=== PATIENT | female | born 1945 | race Caucasian/White ===

== ENCOUNTER 2019-03-13 01:41 | Emergency (ER) | payer MEDICARE ==
[2019-03-13] MEDS ORDERED: ACETAMINOPHEN ELIXIR 650 MG/20.3 ML UDCUP ONE (02:15)
[2019-03-13] MEDS ORDERED: SODIUM CHLORIDE 0.9% 1000ML 1,000 ML IV ONE (02:16)
[2019-03-13 02:40] LABS: BASOPHILS % (AUTO) 0.8 % (0.0-5.0); EOSINOPHILS % (AUTO) 2.2 % (0.0-8.0); HEMATOCRIT 39.1 % (36-48); LYMPHOCYTES % (AUTO) 9.5 % (21.0-51.0); MEAN CORPUSCULAR HEMOGLOBIN 34.8 pg (27.0-33.0); MEAN CORPUSCULAR HGB CONC 34.2 g/dL (32.0-36.0); MEAN CORPUSCULAR VOLUME 101.8 fL (79-99); MONOCYTES % (AUTO) 7.7 % (3.0-13.0); NEUTROPHILS % (AUTO) 79.8 % (40.0-77.0); PLATELET COUNT (AUTO) 162 K/uL (130-400); RED BLOOD CELL COUNT(AUTO) 3.84 MIL/uL (4.00-5.50); RED CELL DISTRIBUTION WIDTH 14.2 % (11.0-15.5); WHITE BLOOD COUNT (AUTO) 10.2 K/uL (4.8-10.8)
[2019-03-13 02:41] LABS: APPEARANCE,URINE Turbid (CLEAR); BILIRUBIN,URINE Negative (NEGATIVE); COLOR,URINE Yellow (YELLOW); GLUCOSE, URINE (UA) Negative (NEGATIVE); KETONES,URINE Negative (NEGATIVE); LEUKOCYTE ESTERASE ,URINE Large (NEGATIVE); NITRATE,URINE Positive (NEGATIVE); OCCULT BLOOD,URINE Large (NEGATIVE); PROTEIN,URINE 300 mg/dL (NEGATIVE)
[2019-03-13 02:48] LABS: AMPHET/METH SCREEN,URINE NEGATIVE (NEGATIVE); BARBITURATE SCREEN, URINE POSITIVE (NEGATIVE); BENZODIAZEPINES SCREEN,URINE NEGATIVE (NEGATIVE); CANNABINOID SCREEN,URINE NEGATIVE (NEGATIVE); COCAINE SCREEN,URINE NEGATIVE (NEGATIVE); OPIATE SCREEN,URINE NEGATIVE (NEGATIVE); PHENCYCLIDINE SCREEN,URINE NEGATIVE (NEGATIVE)
[2019-03-13 02:50] LABS: CREATININE 0.9 mg/dL (0.5-1.5)
[2019-03-13 02:52] LABS: INR 0.96 (0.85-1.15); PARTIAL THROMBOPLASTIN TIME 26.4 SEC (26.3-35.5); PROTHROMBIN TIME 10.1 SEC (9.6-11.6)
[2019-03-13 02:55] LABS: BILIRUBIN,TOTAL 0.8 mg/dL (0.2-1.0); TOTAL PROTEIN, SERUM 8.1 g/dL (6.0-8.3)
[2019-03-13 02:56] LABS: BACTERIA,URINE Few /HPF (None Seen); WBC,URINE 51-100 /HPF (0-1)
[2019-03-13 02:57] LABS: SQUAMOUS EPITHELIAL CELL,UR Rare /HPF (0-2)
== END 2019-03-13 05:15 | disposition home or self-care (01) ==
LOC: EDH 01:41
DX: N39.0 Urinary tract infection, site not specified (principal); I10 Essential (primary) hypertension; E78.00 Pure hypercholesterolemia, unspecified; Z90.49 Acquired absence of other specified parts of digestive tract; Z88.0 Allergy status to penicillin; Z88.1 Allergy status to other antibiotic agents; Z88.8 Allergy status to other drugs, medicaments and biological substances
CPT/HCPCS: 36415; 74176; 80053; 80305; 81001; 83690; 85025; 85610; 85730; 87040 ×2; 93005; 96365; 99285; J7030

== ENCOUNTER 2019-05-06 07:18 | Emergency (ER) | payer MEDICARE, OTHER ==
[2019-05-06] MEDS ORDERED: IPRATROPIUM/ALBUTEROL SULFATE 3 ML SOLUTION IH ONE (07:57)
[2019-05-06] MEDS ORDERED: ACETAMINOPHEN 325 MG TAB ONE (08:02)
[2019-05-06 08:26] LABS: RAPID GROUP A STREP NEGATIVE (NEGATIVE)
== END 2019-05-06 09:41 | disposition home or self-care (01) ==
LOC: EDH 07:18
DX: J20.9 Acute bronchitis, unspecified (principal); J11.1 Influenza due to unidentified influenza virus with other respiratory manifestations; I10 Essential (primary) hypertension; E78.00 Pure hypercholesterolemia, unspecified; Z88.8 Allergy status to other drugs, medicaments and biological substances; Z90.49 Acquired absence of other specified parts of digestive tract; Z87.891 Personal history of nicotine dependence
CPT/HCPCS: 71046; 87804; 87880; 94640

== ENCOUNTER 2019-06-01 04:18 | Emergency (ER) | payer MEDICARE ==
[2019-06-01] MEDS ORDERED: IPRATROPIUM/ALBUTEROL SULFATE 3 ML SOLUTION IH ONE (05:06)
[2019-06-01] MEDS ORDERED: BENZONATATE 100 MG CAPSULE PO ONE (05:09)
[2019-06-01] MEDS ORDERED: METHYLPREDNISOLONE SOD SUCC 125MG/2ML VIAL ONE (05:10)
[2019-06-01 05:23] LABS: BASOPHILS % (AUTO) 1.3 % (0.0-5.0); EOSINOPHILS % (AUTO) 5.4 % (0.0-8.0); HEMATOCRIT 36.4 % (36-48); LYMPHOCYTES % (AUTO) 17.4 % (21.0-51.0); MEAN CORPUSCULAR HEMOGLOBIN 34.1 pg (27.0-33.0); MEAN CORPUSCULAR VOLUME 97.4 fL (79-99); MONOCYTES % (AUTO) 10.3 % (3.0-13.0); NEUTROPHILS % (AUTO) 65.6 % (40.0-77.0); PLATELET COUNT (AUTO) 328 K/uL (130-400); RED BLOOD CELL COUNT(AUTO) 3.73 MIL/uL (4.00-5.50); RED CELL DISTRIBUTION WIDTH 13.5 % (11.0-15.5); WHITE BLOOD COUNT (AUTO) 7.2 K/uL (4.8-10.8)
[2019-06-01 05:24] LABS: CREATININE 0.7 mg/dL (0.5-1.5); POTASSIUM 3.2 mmol/L (3.5-5.1)
[2019-06-01 05:29] LABS: ALBUMIN 3.2 g/dL (3.5-5.0); BILIRUBIN,TOTAL 0.3 mg/dL (0.2-1.0); TOTAL PROTEIN, SERUM 7.7 g/dL (6.0-8.3)
[2019-06-01] MEDS ORDERED: POTASSIUM BICARB/CIT AC 25 MEQ TABLET.EFF ONE (06:37)
== END 2019-06-01 07:27 | disposition home or self-care (01) ==
LOC: EDH 04:18
DX: J42 Unspecified chronic bronchitis (principal); I10 Essential (primary) hypertension; E78.00 Pure hypercholesterolemia, unspecified; Z88.0 Allergy status to penicillin; Z88.8 Allergy status to other drugs, medicaments and biological substances; Z90.49 Acquired absence of other specified parts of digestive tract
CPT/HCPCS: 36415; 71046; 80053; 85025; 94640; 96374; 99285; J2930

== ENCOUNTER 2020-07-21 13:03 | Emergency (ER) | payer MEDICARE ==
[2020-07-21] MEDS ORDERED: KETOROLAC 30MG VIAL (30MG/ML) ONE (16:06)
[2020-07-21] MEDS ORDERED: OXYCODONE/ACETAMIN 5/325MG TAB ONE (16:06)
[2020-07-21] MEDS ORDERED: DEXAMETHASONE 4 MG TAB ONE (16:54)
== END 2020-07-21 17:19 | disposition home or self-care (01) ==
LOC: EDH 13:03
DX: M17.12 Unilateral primary osteoarthritis, left knee (principal); M19.90 Unspecified osteoarthritis, unspecified site; M06.9 Rheumatoid arthritis, unspecified; E78.00 Pure hypercholesterolemia, unspecified; I10 Essential (primary) hypertension; Z90.49 Acquired absence of other specified parts of digestive tract; Z88.0 Allergy status to penicillin; Z88.2 Allergy status to sulfonamides; Z88.1 Allergy status to other antibiotic agents; Z88.8 Allergy status to other drugs, medicaments and biological substances
CPT/HCPCS: 72100; 73502; 73562; 96372; 99284; J1885; J8540

== ENCOUNTER 2020-08-21 22:21 | Inpatient (IN) | payer MEDICARE, OTHER ==
[~2020-08-21] VITALS: Ht 162.6 cm; Wt 81.3 kg
[2020-08-21] MEDS ORDERED: MORPHINE 2 MG SYG ONE (22:25)
[2020-08-21] MEDS ORDERED: ONDANSETRON 4MG INJ ONE (22:25)
[2020-08-21 22:41] LABS: BASOPHILS % (AUTO) 1.8 % (0.0-5.0); EOSINOPHILS % (AUTO) 9.6 % (0.0-8.0); HEMATOCRIT 35.4 % (36-48); LYMPHOCYTES % (AUTO) 32.3 % (21.0-51.0); MEAN CORPUSCULAR HEMOGLOBIN 32.2 pg (27.0-33.0); MEAN CORPUSCULAR HGB CONC 35.9 g/dL (32.0-36.0); MEAN CORPUSCULAR VOLUME 89.6 fL (79-99); MONOCYTES % (AUTO) 14.4 % (3.0-13.0); NEUTROPHILS % (AUTO) 41.8 % (40.0-77.0); PLATELET COUNT (AUTO) 258 K/uL (130-400); RED BLOOD CELL COUNT(AUTO) 3.95 MIL/uL (4.00-5.50); RED CELL DISTRIBUTION WIDTH 12.1 % (11.0-15.5); WHITE BLOOD COUNT (AUTO) 7.1 K/uL (4.8-10.8)
[2020-08-21 22:49] LABS: APPEARANCE,URINE Clear (CLEAR); BILIRUBIN,URINE Negative (NEGATIVE); COLOR,URINE Yellow (YELLOW); GLUCOSE, URINE (UA) Negative (NEGATIVE); KETONES,URINE Negative (NEGATIVE); LEUKOCYTE ESTERASE ,URINE Negative (NEGATIVE); NITRATE,URINE Negative (NEGATIVE); OCCULT BLOOD,URINE Negative (NEGATIVE); PROTEIN,URINE Trace mg/dL (NEGATIVE); UROBILINOGEN,URINE 0.2 mg/dL (0.2-1.0)
[2020-08-21 22:49] LABS: CREATININE 0.8 mg/dL (0.5-1.5); POTASSIUM 3.3 mmol/L (3.5-5.1)
[2020-08-21 22:54] LABS: ALBUMIN 3.8 g/dL (3.5-5.0); BILIRUBIN,TOTAL 0.3 mg/dL (0.2-1.0); TOTAL PROTEIN, SERUM 8.1 g/dL (6.0-8.3)
[2020-08-21 23:00] LABS: INR 1.07 (0.85-1.15); PROTHROMBIN TIME 11.4 SEC (9.6-11.6)
[2020-08-21 23:01] LABS: PARTIAL THROMBOPLASTIN TIME 25.9 SEC (26.3-35.5)
[2020-08-21] MEDS ORDERED: POTASSIUM BICARB/CIT AC 25 MEQ TABLET.EFF ONE (23:15)
[2020-08-21] MEDS ORDERED: MORPHINE 4 MG SYG ONE (23:29)
[2020-08-22] VITALS (21 sets, daily range): BP systolic 106–146; BP diastolic 54–92
[2020-08-22] MEDS ORDERED: DiphenhydrAMINE HCL 50 MG/ML VIAL IV PRN
[2020-08-22] MEDS ORDERED: KCL 20 MEQ ERTAB PO PRN
[2020-08-22] MEDS ORDERED: DIPHENHYDRAMINE HCL 25 MG CAPSULE PO PRN
[2020-08-22] MEDS ORDERED: MORPHINE 4 MG SYG IV PRN
[2020-08-22] MEDS ORDERED: POTASSIUM CHLORIDE 20MEQ/100ML 100 ML IV PRN ×2
[2020-08-22] MEDS ORDERED: MORPHINE 2 MG SYG IV PRN
[2020-08-22] MEDS ORDERED: ONDANSETRON 4MG INJ IV PRN
[2020-08-22] MEDS ORDERED: GUAIFENESIN-DM 200/20 MG 10 ML PO PRN
[2020-08-22] MEDS ORDERED: LACTULOSE 20 GM/30 ML UDCUP PO PRN
[2020-08-22] MEDS ORDERED: ACETAMINOPHEN WITH CODEINE 1 TAB TAB PO PRN
[2020-08-22] MEDS ORDERED: ACETAMINOPHEN 325 MG TAB PO PRN ×2
[2020-08-22] MEDS ORDERED: NITROGLYCERIN 0.4 MG SL TAB SL PRN
[2020-08-22] MEDS ORDERED: MAG/ALUM/SIMETH 30 ML UDCUP PO PRN
[2020-08-22 05:32] LABS: EOSINOPHILS % (AUTO) 1.4 % (0.0-8.0); HEMATOCRIT 35.2 % (36-48); LYMPHOCYTES % (AUTO) 9.9 % (21.0-51.0); MEAN CORPUSCULAR HEMOGLOBIN 31.4 pg (27.0-33.0); MEAN CORPUSCULAR HGB CONC 34.4 g/dL (32.0-36.0); MEAN CORPUSCULAR VOLUME 91.4 fL (79-99); MONOCYTES % (AUTO) 8.2 % (3.0-13.0); NEUTROPHILS % (AUTO) 79.2 % (40.0-77.0); PLATELET COUNT (AUTO) 278 K/uL (130-400); RED BLOOD CELL COUNT(AUTO) 3.85 MIL/uL (4.00-5.50); WHITE BLOOD COUNT (AUTO) 9.8 K/uL (4.8-10.8)
[2020-08-22 05:40] LABS: HEMOGLOBIN A1C 5.3 % (4.0-6.0)
[2020-08-22 05:58] LABS: INR 1.04 (0.85-1.15); PROTHROMBIN TIME 11.1 SEC (9.6-11.6)
[2020-08-22 06:16] LABS: ALBUMIN 3.3 g/dL (3.5-5.0); BILIRUBIN,TOTAL 0.6 mg/dL (0.2-1.0); POTASSIUM 4.4 mmol/L (3.5-5.1); TOTAL PROTEIN, SERUM 7.4 g/dL (6.0-8.3)
[2020-08-22 06:51] LABS: CREATININE 0.8 mg/dL (0.5-1.5); THYROID STIMULATING HORMONE 1.97 uIU/mL (0.36-3.74)
[2020-08-22] MEDS: HEPARIN 5,000 UNIT VIAL SQ SCH ×2 (09:00→22:15)
[2020-08-22] MEDS: FAMOTIDINE 20MG VIAL IV SCH ×2 (11:21→22:08)
[2020-08-22] MEDS ORDERED: CLINDAMYCIN IVPB 900MG/50ML 50 ML IV ONE (12:44)
[2020-08-22] MEDS ORDERED: MIDAZOLAM HCL 1 MG/ML 2ML VIAL ONE (12:49)
[2020-08-22] MEDS ORDERED: SUCCINYLCHOLINE CHLORIDE 20 MG/ML 10 ML VIAL ONE (12:53)
[2020-08-22] MEDS ORDERED: LIDOCAINE HCL-MPF 1% 5ML AMP IJ ONE (12:53)
[2020-08-22] MEDS ORDERED: DEXAMETHASONE SOD PHOSPHATE 10MG/ML 1ML VIAL ONE (12:54)
[2020-08-22] MEDS ORDERED: PROPOFOL 10 MG/ML 20ML VIAL IV ONE (12:54)
[2020-08-22] MEDS ORDERED: ROCURONIUM 10MG/1ML SYR 10 MG/ML ML ONE (12:54)
[2020-08-22] MEDS ORDERED: FENTANYL CITRATE PF 50 MCG/1 ML 2ML VIAL ONE (12:54)
[2020-08-22] MEDS ORDERED: ONDANSETRON 4MG INJ ONE (12:54)
[2020-08-22] MEDS ORDERED: ROPIVACAINE 0.5% 5MG/ML 30ML IJ ONE (12:57)
[2020-08-22] MEDS ORDERED: EPHEDRINE SULFATE 50 MG/ML AMPULE ONE (13:18)
[2020-08-22] MEDS ORDERED: GLYCOPYRROLATE 1 MG/5 ML SYRINGE ONE (14:08)
[2020-08-22] MEDS ORDERED: NEOSTIGMINE 5MG/5ML SYR IV ONE (14:08)
[2020-08-22] MEDS ORDERED: PHENYLEPHRINE HCL 10 MG/ML 1ML VIAL IV ONE (14:16)
[2020-08-22] MEDS ORDERED: BRIM10DR16 OP (20:11)
[2020-08-22] MEDS ORDERED: CYCL5TAB PO (20:11)
[2020-08-22] MEDS ORDERED: CYCL30DR OP (20:11)
[2020-08-22] MEDS ORDERED: SPIR25TA6 PO (20:11)
[2020-08-22] MEDS ORDERED: AMLO2.5T4 PO (20:11)
[2020-08-22] MEDS ORDERED: BISO10TA16 PO (20:11)
[2020-08-22] MEDS ORDERED: ROSU40TA21 PO (20:11)
[2020-08-22] MEDS ORDERED: ASPI-1197 PO (20:11)
[2020-08-22] MEDS ORDERED: LEFL10TA19 PO (20:11)
[2020-08-22] MEDS ORDERED: HYDR200T4 PO (20:11)
[2020-08-22] MEDS ORDERED: LATA7.5D OP (20:11)
[2020-08-22] MEDS ORDERED: PHEN100C9 PO (20:11)
[2020-08-22] MEDS ORDERED: EZET10TA48 PO (20:11)
[2020-08-22] MEDS ORDERED: FURO20TA4 PO (20:11)
[2020-08-22] MEDS ORDERED: MELO-106 PO (20:11)
[2020-08-22] MEDS ORDERED: LEVO75CA5 PO (20:11)
[2020-08-22] MEDS ORDERED: PHEN97.29 PO (20:11)
[2020-08-23 03:38] VITALS: BP 123/59
[2020-08-23 06:19] LABS: BASOPHILS % (AUTO) 1.1 % (0.0-5.0); EOSINOPHILS % (AUTO) 3.6 % (0.0-8.0); HEMATOCRIT 30.2 % (36-48); LYMPHOCYTES % (AUTO) 16.5 % (21.0-51.0); MEAN CORPUSCULAR HEMOGLOBIN 31.7 pg (27.0-33.0); MEAN CORPUSCULAR HGB CONC 34.8 g/dL (32.0-36.0); MEAN CORPUSCULAR VOLUME 91.2 fL (79-99); MONOCYTES % (AUTO) 15.7 % (3.0-13.0); NEUTROPHILS % (AUTO) 62.8 % (40.0-77.0); PLATELET COUNT (AUTO) 238 K/uL (130-400); RED BLOOD CELL COUNT(AUTO) 3.31 MIL/uL (4.00-5.50); RED CELL DISTRIBUTION WIDTH 11.9 % (11.0-15.5); WHITE BLOOD COUNT (AUTO) 7.2 K/uL (4.8-10.8)
[2020-08-23 06:48] LABS: ALBUMIN 2.9 g/dL (3.5-5.0); BILIRUBIN,TOTAL 0.4 mg/dL (0.2-1.0); CREATININE 0.7 mg/dL (0.5-1.5); POTASSIUM 4.9 mmol/L (3.5-5.1); TOTAL PROTEIN, SERUM 6.6 g/dL (6.0-8.3)
[2020-08-23 07:19] VITALS: BP 142/69
[2020-08-23] MEDS: LEVOTHYROXINE 75 MCG TABLET PO SCH (07:22)
[2020-08-23] MEDS: HEPARIN 5,000 UNIT VIAL SQ SCH ×2 (08:34→20:14)
[2020-08-23] MEDS: CYCLOBENZAPRINE HCL 10 MG TABLET PO SCH (08:40)
[2020-08-23] MEDS: AMLODIPINE 2.5 MG TAB PO SCH (08:41)
[2020-08-23] MEDS: ASPIRIN 81MG CHEW TAB PO SCH (08:41)
[2020-08-23] MEDS: FUROSEMIDE 40 MG TABLET PO SCH (08:41)
[2020-08-23] MEDS: PHENYTOIN SODIUM 100 MG ERCAP PO SCH ×3 (08:41→20:09)
[2020-08-23] MEDS: EZETIMIBE 10 MG TAB PO SCH (08:41)
[2020-08-23] MEDS: HYDROXYCHLOROQUINE SULFATE 200 MG TAB PO SCH (08:41)
[2020-08-23] MEDS: SPIRONOLACTONE 25 MG TAB PO SCH (08:43)
[2020-08-23] MEDS: BRIMONIDINE OP SCH ×2 (09:00→20:08)
[2020-08-23] MEDS: **HM**(Leflunomide 10 MG PO SCH (09:00)
[2020-08-23] MEDS: BISOPROLOL FUMARATE 10 MG PO SCH (09:00)
[2020-08-23] MEDS: LATANOPROST 2.5 ML DROPS OP SCH (09:00)
[2020-08-23] MEDS: DORZOLAMIDE OP SCH ×2 (09:00→20:08)
[2020-08-23] MEDS: **HM**(Cyclosporine (Restasis) 1 EACH OP SCH ×2 (09:00→20:08)
[2020-08-23 10:51] VITALS: BP 132/57
[2020-08-23] MEDS: ACETAMINOPHEN WITH CODEINE 1 TAB TAB PO PRN ×2 (12:00→19:55)
[2020-08-23] MEDS: FAMOTIDINE 20MG TAB PO SCH ×2 (12:01→20:08)
[2020-08-23 15:38] VITALS: BP 122/60
[2020-08-23] MEDS: PHENOBARBITAL 1/4 GR TABLET PO SCH (16:02)
[2020-08-23 19:39] VITALS: BP 145/60
[2020-08-23] MEDS: ATORVASTATIN 40 MG TABLET PO SCH (20:08)
[2020-08-23 23:55] VITALS: BP 122/56
[2020-08-24] MEDS: FUROSEMIDE 40 MG TABLET PO SCH ×3 (02:23→21:06)
[2020-08-24 04:53] VITALS: BP 148/63
[2020-08-24 06:09] LABS: BASOPHILS % (AUTO) 1.2 % (0.0-5.0); HEMATOCRIT 31.3 % (36-48); LYMPHOCYTES % (AUTO) 12.9 % (21.0-51.0); MEAN CORPUSCULAR HEMOGLOBIN 31.5 pg (27.0-33.0); MEAN CORPUSCULAR HGB CONC 35.1 g/dL (32.0-36.0); MEAN CORPUSCULAR VOLUME 89.7 fL (79-99); MONOCYTES % (AUTO) 16.1 % (3.0-13.0); NEUTROPHILS % (AUTO) 67.6 % (40.0-77.0); PLATELET COUNT (AUTO) 226 K/uL (130-400); RED BLOOD CELL COUNT(AUTO) 3.49 MIL/uL (4.00-5.50); WHITE BLOOD COUNT (AUTO) 8.1 K/uL (4.8-10.8)
[2020-08-24] MEDS: LEVOTHYROXINE 75 MCG TABLET PO SCH (06:41)
[2020-08-24 06:56] LABS: ALBUMIN 2.9 g/dL (3.5-5.0); BILIRUBIN,TOTAL 0.6 mg/dL (0.2-1.0); CREATININE 0.8 mg/dL (0.5-1.5); POTASSIUM 3.4 mmol/L (3.5-5.1)
[2020-08-24 07:11] VITALS: BP 140/70
[2020-08-24] MEDS: **HM**(Cyclosporine (Restasis) 1 EACH OP SCH ×2 (09:00→21:00)
[2020-08-24] MEDS: BRIMONIDINE OP SCH ×2 (09:00→21:00)
[2020-08-24] MEDS: LATANOPROST 2.5 ML DROPS OP SCH (09:00)
[2020-08-24] MEDS: BISOPROLOL FUMARATE 10 MG PO SCH (09:00)
[2020-08-24] MEDS: **HM**(Leflunomide 10 MG PO SCH (09:00)
[2020-08-24] MEDS: DORZOLAMIDE OP SCH ×2 (09:00→21:00)
[2020-08-24] MEDS: HEPARIN 5,000 UNIT VIAL SQ SCH ×2 (09:52→21:06)
[2020-08-24] MEDS: CYCLOBENZAPRINE HCL 10 MG TABLET PO SCH (10:06)
[2020-08-24] MEDS: AMLODIPINE 2.5 MG TAB PO SCH (10:08)
[2020-08-24] MEDS: SPIRONOLACTONE 25 MG TAB PO SCH (10:08)
[2020-08-24] MEDS: EZETIMIBE 10 MG TAB PO SCH (10:09)
[2020-08-24] MEDS: HYDROXYCHLOROQUINE SULFATE 200 MG TAB PO SCH (10:09)
[2020-08-24] MEDS: FAMOTIDINE 20MG TAB PO SCH ×2 (10:09→21:06)
[2020-08-24] MEDS: PHENOBARBITAL 1/4 GR TABLET PO SCH (10:10)
[2020-08-24] MEDS: ASPIRIN 81MG CHEW TAB PO SCH (10:10)
[2020-08-24] MEDS: PHENYTOIN SODIUM 100 MG ERCAP PO SCH ×3 (10:10→21:05)
[2020-08-24] MEDS: POTASSIUM CHLORIDE 10% ELIXIR 20 MEQ/15 ML UDCUP PO PRN ×2 (11:21→17:03)
[2020-08-24 11:45] VITALS: BP 119/64
[2020-08-24 15:34] VITALS: BP 147/99
[2020-08-24 20:49] VITALS: BP 108/52
[2020-08-24] MEDS: ATORVASTATIN 40 MG TABLET PO SCH (21:05)
[2020-08-24 23:29] VITALS: BP 126/60
[2020-08-25 03:26] VITALS: BP 113/59
[2020-08-25] MEDS: LEVOTHYROXINE 75 MCG TABLET PO SCH (05:23)
[2020-08-25 07:56] VITALS: BP 137/52
[2020-08-25] MEDS: HYDROXYCHLOROQUINE SULFATE 200 MG TAB PO SCH (09:00)
[2020-08-25] MEDS: EZETIMIBE 10 MG TAB PO SCH (09:00)
[2020-08-25] MEDS: LATANOPROST 2.5 ML DROPS OP SCH (09:00)
[2020-08-25] MEDS: HEPARIN 5,000 UNIT VIAL SQ SCH (09:00)
[2020-08-25] MEDS: AMLODIPINE 2.5 MG TAB PO SCH (09:00)
[2020-08-25] MEDS: BRIMONIDINE OP SCH (09:00)
[2020-08-25] MEDS: FAMOTIDINE 20MG TAB PO SCH (09:00)
[2020-08-25] MEDS: **HM**(Leflunomide 10 MG PO SCH (09:00)
[2020-08-25] MEDS: DORZOLAMIDE OP SCH (09:00)
[2020-08-25] MEDS: **HM**(Cyclosporine (Restasis) 1 EACH OP SCH (09:00)
[2020-08-25] MEDS: ASPIRIN 81MG CHEW TAB PO SCH (09:00)
[2020-08-25] MEDS: BISOPROLOL FUMARATE 10 MG PO SCH (09:00)
[2020-08-25] MEDS: SPIRONOLACTONE 25 MG TAB PO SCH (09:00)
[2020-08-25] MEDS: FUROSEMIDE 40 MG TABLET PO SCH (09:00)
[2020-08-25] MEDS: PHENYTOIN SODIUM 100 MG ERCAP PO SCH (09:00)
[2020-08-25] MEDS: CYCLOBENZAPRINE HCL 10 MG TABLET PO SCH (09:00)
[2020-08-25 11:36] VITALS: BP 145/74
[2020-08-25 16:17] VITALS: BP 109/52
== END 2020-08-25 18:47 | DRG 482 ==
LOC: EDH 22:21 → EDHIP 23:54 → 3BH 08-22 02:24
PROVIDERS: ADMIT Family Medicine; ATTEND Family Medicine
PROC: 0QS906Z Reposition Left Femoral Shaft with Intramedullary Internal Fixation Device, Open Approach (ICD-10-PCS; principal; 2020-08-22 13:35)
DX: S72.332A Displaced oblique fracture of shaft of left femur, initial encounter for closed fracture (principal); Z68.30 Body mass index [BMI] 30.0-30.9, adult; I10 Essential (primary) hypertension; E78.5 Hyperlipidemia, unspecified; W18.39XA Other fall on same level, initial encounter; Y93.89 Activity, other specified; Y99.8 Other external cause status; Y92.009 Unspecified place in unspecified non-institutional (private) residence as the place of occurrence of the external cause; Z90.49 Acquired absence of other specified parts of digestive tract; E66.9 Obesity, unspecified; Z88.8 Allergy status to other drugs, medicaments and biological substances; Z88.0 Allergy status to penicillin; Z88.1 Allergy status to other antibiotic agents
CPT/HCPCS: 36415; 71045; 72192; 73502; 73552; 73700; 80053; 81003; 82550; 84484; 85025; 85610; 85730; 86900; 86901; 93005; 97039; 99291; G0378; J0330; J1100; J1644; J2250; J2270; J2370; J2405; J2704; J2710; J2795; J3010; J3490; J7030

== ENCOUNTER 2020-09-24 11:01 | Inpatient (IN) | payer MEDICARE, OTHER ==
[~2020-09-24] VITALS: Ht 154.9 cm; Wt 65.8 kg
[~2020-09-24 11:01] MED LIST: AMLO2.5T4 PO; ASPI-1197 PO; BISO10TA16 PO; BRIM10DR16 OP; CYCL30DR OP; CYCL5TAB PO; EZET10TA48 PO; FURO20TA4 PO; HYDR200T4 PO; LATA7.5D OP; LEFL10TA19 PO; LEVO75CA5 PO; MELO-106 PO; PHEN100C9 PO; PHEN97.29 PO; ROSU40TA21 PO; SPIR25TA6 PO
[2020-09-24 11:45] LABS: BASOPHILS % (AUTO) 1.1 % (0.0-5.0); EOSINOPHILS % (AUTO) 1.9 % (0.0-8.0); HEMATOCRIT 36.3 % (36-48); LYMPHOCYTES % (AUTO) 14.4 % (21.0-51.0); MEAN CORPUSCULAR HEMOGLOBIN 31.1 pg (27.0-33.0); MEAN CORPUSCULAR HGB CONC 33.3 g/dL (32.0-36.0); MEAN CORPUSCULAR VOLUME 93.3 fL (79-99); NEUTROPHILS % (AUTO) 70.2 % (40.0-77.0); PLATELET COUNT (AUTO) 300 K/uL (130-400); RED BLOOD CELL COUNT(AUTO) 3.89 MIL/uL (4.00-5.50); RED CELL DISTRIBUTION WIDTH 13.5 % (11.0-15.5); WHITE BLOOD COUNT (AUTO) 13.4 K/uL (4.8-10.8)
[2020-09-24 11:51] LABS: POTASSIUM 3.5 mmol/L (3.5-5.1)
[2020-09-24 11:56] LABS: ALBUMIN 3.2 g/dL (3.5-5.0); BILIRUBIN,TOTAL 0.6 mg/dL (0.2-1.0); TOTAL PROTEIN, SERUM 7.4 g/dL (6.0-8.3)
[2020-09-24 12:15] LABS: INR 1.04 (0.85-1.15); PROTHROMBIN TIME 11.3 SEC (9.6-11.6)
[2020-09-24 12:17] LABS: PARTIAL THROMBOPLASTIN TIME 24.5 SEC (26.3-35.5)
[2020-09-24] MEDS ORDERED: ONDANSETRON 4MG INJ ONE (13:36)
[2020-09-24] MEDS ORDERED: HEPARIN 5,000 UNIT VIAL ONE (13:36)
[2020-09-24] MEDS ORDERED: ASPIRIN 81MG CHEW TAB ONE (13:36)
[2020-09-24] MEDS ORDERED: MORPHINE 2 MG SYG ONE (13:37)
[2020-09-24] MEDS ORDERED: NITROGLYCERIN 1GM OINT 1 INCH/1GM TD ONE (13:37)
[2020-09-24] MEDS ORDERED: MORPHINE 2 MG SYG IV PRN (14:30)
[2020-09-24] MEDS ORDERED: ACETAMINOPHEN 325 MG TAB PO PRN ×2 (14:30)
[2020-09-24] MEDS ORDERED: ONDANSETRON 4MG INJ IV PRN (14:30)
[2020-09-24] MEDS: CEFTRIAXONE 1G VIAL IV SCH (14:30)
[2020-09-24] MEDS ORDERED: ASPIRIN 325MG EC TAB PO SCH (14:45)
[2020-09-24] MEDS ORDERED: 0.9% NACL 500ML IV.SOLN 500 ML IV SCH (14:45)
[2020-09-24 15:00] LABS: HEMOGLOBIN A1C 5.1 % (4.0-6.0)
[2020-09-24] MEDS ORDERED: CLOPIDOGREL 300MG TAB PO SCH (15:01)
[2020-09-24] MEDS ORDERED: CEFTRIAXONE 1G VIAL ONE (15:07)
[2020-09-24] MEDS ORDERED: 0.9%NACL 50ML 50 ML IV ONE (15:07)
[2020-09-24 15:08] LABS: THYROID STIMULATING HORMONE 2.48 uIU/mL (0.36-3.74)
[2020-09-24] MEDS ORDERED: CLOPIDOGREL 300MG TAB ONE (15:45)
[2020-09-24] MEDS ORDERED: ASPIRIN 325 MG TABLET ONE (15:45)
[2020-09-24 16:09] LABS: INR 1.11 (0.85-1.15)
[2020-09-24] MEDS ORDERED: 0.9%NACL 1000ML 1,000 ML IV ONE (16:11)
[2020-09-24] MEDS ORDERED: MIDAZOLAM HCL 1 MG/ML 2ML VIAL ONE (17:39)
[2020-09-24] MEDS ORDERED: HEPARIN 10,000 UNIT/10ML (1,000 UNIT/ML) VIAL ONE (17:39)
[2020-09-24] MEDS ORDERED: IOHEXOL 350 MG/ML 100ML INFUS..BTL IV ONE (17:39)
[2020-09-24] MEDS ORDERED: BIVALIRUDIN 250 MG/VIAL IV ONE (17:39)
[2020-09-24] MEDS ORDERED: LIDOCAINE HCL 400MG/20ML VIAL ONE (17:40)
[2020-09-24] MEDS ORDERED: FENTANYL CITRATE PF 50 MCG/1 ML 2ML VIAL ONE (17:40)
[2020-09-24] MEDS ORDERED: FUROSEMIDE 20MG VIAL ONE (18:18)
[2020-09-24 19:30] LABS: INR 1.12 (0.85-1.15); PROTHROMBIN TIME 12.1 SEC (9.6-11.6)
[2020-09-24 19:31] LABS: PARTIAL THROMBOPLASTIN TIME 24.8 SEC (26.3-35.5)
[2020-09-24] MEDS ORDERED: BRIMONIDINE OP SCH (21:00)
[2020-09-24] MEDS ORDERED: [UNRECOGNIZED DRUG - OTHER] OP SCH (21:00)
[2020-09-24] MEDS ORDERED: NON-FORMULARY MEDICATION 1 EACH (Rosuvastatin Calcium 40 MG) PO SCH (21:00)
[2020-09-24] MEDS: FUROSEMIDE 20 MG TABLET PO SCH (21:00)
[2020-09-24] MEDS: Rosuvastatin Calcium 40 MG PO SCH (21:00)
[2020-09-24] MEDS: FAMOTIDINE 20MG VIAL IV SCH (21:00)
[2020-09-24] MEDS ORDERED: DORZOLAMIDE OP SCH (21:00)
[2020-09-25] VITALS (13 sets, daily range): BP systolic 97–141; BP diastolic 52–75
[2020-09-25] MEDS ORDERED: FUROSEMIDE 20MG VIAL ONE (00:20)
[2020-09-25] MEDS ORDERED: IOHEXOL 350 MG/ML 100ML INFUS..BTL IV ONE (02:14)
[2020-09-25] MEDS ORDERED: NON-FORMULARY MEDICATION 1 EACH (Levothyroxine Sodium (Levothyroxine) 75 MCG) PO SCH (06:00)
[2020-09-25 06:08] LABS: BASOPHILS % (AUTO) 1.3 % (0.0-5.0); EOSINOPHILS % (AUTO) 0.5 % (0.0-8.0); HEMATOCRIT 35.7 % (36-48); LYMPHOCYTES % (AUTO) 11.3 % (21.0-51.0); MEAN CORPUSCULAR HEMOGLOBIN 31.8 pg (27.0-33.0); MEAN CORPUSCULAR HGB CONC 33.6 g/dL (32.0-36.0); MEAN CORPUSCULAR VOLUME 94.7 fL (79-99); MONOCYTES % (AUTO) 11.1 % (3.0-13.0); NEUTROPHILS % (AUTO) 75.4 % (40.0-77.0); PLATELET COUNT (AUTO) 265 K/uL (130-400); RED BLOOD CELL COUNT(AUTO) 3.77 MIL/uL (4.00-5.50); RED CELL DISTRIBUTION WIDTH 13.6 % (11.0-15.5); WHITE BLOOD COUNT (AUTO) 8.5 K/uL (4.8-10.8)
[2020-09-25] MEDS: LEVOTHYROXINE 75 MCG TABLET PO SCH (06:34)
[2020-09-25] MEDS: ENOXAPARIN SODIUM 80 MG/0.8 ML SQ SCH ×2 (06:35→13:39)
[2020-09-25 06:39] LABS: BILIRUBIN,TOTAL 0.4 mg/dL (0.2-1.0); CREATININE 0.8 mg/dL (0.5-1.5); POTASSIUM 3.4 mmol/L (3.5-5.1); TOTAL PROTEIN, SERUM 7.2 g/dL (6.0-8.3)
[2020-09-25 07:27] LABS: ERYTHROCYTE SEDIMENTATION RATE 56 MM/HR (0-30)
[2020-09-25] MEDS: ASPIRIN 81MG CHEW TAB PO SCH ×2 (09:00→10:15)
[2020-09-25] MEDS ORDERED: ENOXAPARIN SODIUM 1 MG/KG SQ SCH (09:00)
[2020-09-25] MEDS ORDERED: ENOXAPARIN SODIUM 30 MG/0.3 ML SQ SCH (09:00)
[2020-09-25] MEDS ORDERED: AMLODIPINE 2.5 MG TAB PO SCH (09:00)
[2020-09-25] MEDS ORDERED: BISOPROLOL FUMARATE 10 MG PO SCH (09:00)
[2020-09-25] MEDS: Bisoprolol Fumarate 10 MG PO SCH (10:15)
[2020-09-25] MEDS: FUROSEMIDE 20 MG TABLET PO SCH ×2 (10:16→21:16)
[2020-09-25] MEDS: SPIRONOLACTONE 25 MG TAB PO SCH (10:16)
[2020-09-25] MEDS ORDERED: KCL 20 MEQ ERTAB PO SCH (10:28)
[2020-09-25 10:30] LABS: INR 1.1 (0.85-1.15); PROTHROMBIN TIME 11.9 SEC (9.6-11.6)
[2020-09-25 10:32] LABS: PARTIAL THROMBOPLASTIN TIME 25.1 SEC (26.3-35.5)
[2020-09-25] MEDS ORDERED: HEPARIN 10,000 UNIT/10ML (1,000 UNIT/ML) VIAL ONE ×2 (10:58→11:57)
[2020-09-25] MEDS ORDERED: IOHEXOL-350 75 ML VIAL IV ONE ×2 (10:58→11:13)
[2020-09-25] MEDS ORDERED: IOHEXOL-350 50ML VIAL IV ONE ×2 (10:58→11:29)
[2020-09-25] MEDS ORDERED: MIDAZOLAM HCL 1 MG/ML 2ML VIAL ONE (10:59)
[2020-09-25] MEDS ORDERED: LIDOCAINE HCL 400MG/20ML VIAL ONE (10:59)
[2020-09-25] MEDS ORDERED: CLOPIDOGREL 300MG TAB ONE (13:42)
[2020-09-25] MEDS ORDERED: TEMAZEPAM 30 MG CAP PO PRN (13:45)
[2020-09-25] MEDS ORDERED: NITROGLYCERIN 50MG/D5W 250ML 1 BOT IV PRN (13:45)
[2020-09-25] MEDS ORDERED: ONDANSETRON 4MG INJ IVP SCH (13:45)
[2020-09-25] MEDS ORDERED: ACETAMINOPHEN WITH CODEINE 1 TAB TAB PO PRN ×2 (13:45)
[2020-09-25] MEDS ORDERED: ONDANSETRON 4MG INJ IVP PRN (13:45)
[2020-09-25] MEDS ORDERED: MORPHINE 5 MG/ML VIAL (5MG OR GREATER DOSE) IVP SCH (13:45)
[2020-09-25 16:18] LABS: INR 1.16 (0.85-1.15); PROTHROMBIN TIME 12.5 SEC (9.6-11.6)
[2020-09-25 16:20] LABS: PARTIAL THROMBOPLASTIN TIME 53.3 SEC (26.3-35.5)
[2020-09-25] MEDS: PANTOPRAZOLE 40 MG TAB DR PO SCH (17:09)
[2020-09-25] MEDS: CEFTRIAXONE 1G VIAL IV SCH (17:09)
[2020-09-25] MEDS ORDERED: KCL 20 MEQ ERTAB PO ONE (17:13)
[2020-09-25] MEDS ORDERED: MORPHINE 10MG VIAL ONE (17:14)
[2020-09-25 17:18] LABS: INR 1.17 (0.85-1.15); PROTHROMBIN TIME 12.6 SEC (9.6-11.6)
[2020-09-25 17:19] LABS: PARTIAL THROMBOPLASTIN TIME 37.3 SEC (26.3-35.5)
[2020-09-25 18:07] LABS: INR 1.15 (0.85-1.15); PROTHROMBIN TIME 12.4 SEC (9.6-11.6)
[2020-09-25 18:09] LABS: PARTIAL THROMBOPLASTIN TIME 31.5 SEC (26.3-35.5)
[2020-09-25 19:35] LABS: INR 1.15 (0.85-1.15); PROTHROMBIN TIME 12.4 SEC (9.6-11.6)
[2020-09-25 19:36] LABS: PARTIAL THROMBOPLASTIN TIME 27.6 SEC (26.3-35.5)
[2020-09-25] MEDS: FAMOTIDINE 20MG VIAL IV SCH (21:23)
[2020-09-25] MEDS: Rosuvastatin Calcium 40 MG PO SCH (21:28)
[2020-09-25 22:35] LABS: INR 1.15 (0.85-1.15); PROTHROMBIN TIME 12.4 SEC (9.6-11.6)
[2020-09-25 22:37] LABS: PARTIAL THROMBOPLASTIN TIME 25.6 SEC (26.3-35.5)
[2020-09-26 00:24] VITALS: BP 97/53
[2020-09-26 04:29] VITALS: BP 95/64
[2020-09-26 04:49] LABS: HEMATOCRIT 29.3 % (36-48); MEAN CORPUSCULAR HEMOGLOBIN 32.1 pg (27.0-33.0); MEAN CORPUSCULAR HGB CONC 35.5 g/dL (32.0-36.0); MEAN CORPUSCULAR VOLUME 90.4 fL (79-99); RED BLOOD CELL COUNT(AUTO) 3.24 MIL/uL (4.00-5.50); RED CELL DISTRIBUTION WIDTH 13.2 % (11.0-15.5); WHITE BLOOD COUNT (AUTO) 8.4 K/uL (4.8-10.8)
[2020-09-26 04:53] LABS: CREATININE 0.9 mg/dL (0.5-1.5); POTASSIUM 3.1 mmol/L (3.5-5.1)
[2020-09-26] MEDS: ENOXAPARIN SODIUM 80 MG/0.8 ML SQ SCH ×2 (05:26→18:06)
[2020-09-26] MEDS: PANTOPRAZOLE 40 MG TAB DR PO SCH (06:04)
[2020-09-26] MEDS: LEVOTHYROXINE 75 MCG TABLET PO SCH (06:05)
[2020-09-26] MEDS ORDERED: CLOP75TA14 PO (06:35)
[2020-09-26 08:00] VITALS: BP 114/57
[2020-09-26] MEDS ORDERED: CLOPIDOGREL 75MG TAB PO SCH (09:00)
[2020-09-26] MEDS: Bisoprolol Fumarate 10 MG PO SCH (09:00)
[2020-09-26] MEDS ORDERED: ASPIRIN 81MG CHEW TAB PO SCH (09:00)
[2020-09-26] MEDS: FUROSEMIDE 20 MG TABLET PO SCH ×2 (09:00→09:37)
[2020-09-26] MEDS: ASPIRIN 81MG CHEW TAB PO SCH (09:37)
[2020-09-26] MEDS: SPIRONOLACTONE 25 MG TAB PO SCH (09:37)
[2020-09-26 12:00] VITALS: BP 117/62
[2020-09-26] MEDS: CEFTRIAXONE 1G VIAL IV SCH (14:15)
[2020-09-26 16:00] VITALS: BP 115/69
[2020-09-26 19:00] VITALS: BP 123/65
== END 2020-09-26 19:55 | disposition home or self-care (01) | DRG 246 ==
LOC: EDH 11:01 → EDHIP 14:22 → 4CH 09-25 03:18
PROVIDERS: ADMIT Internal Medicine; ATTEND Internal Medicine
PROC: 5A09357 Assistance with Respiratory Ventilation, Less than 24 Consecutive Hours, Continuous Positive Airway Pressure (ICD-10-PCS; 2020-09-24)
PROC: 4A023N7 Measurement of Cardiac Sampling and Pressure, Left Heart, Percutaneous Approach (ICD-10-PCS; principal; 2020-09-25)
PROC: B2111ZZ Fluoroscopy of Multiple Coronary Arteries using Low Osmolar Contrast (ICD-10-PCS; 2020-09-25)
PROC: 027036Z Dilation of Coronary Artery, One Artery with Three Drug-eluting Intraluminal Devices, Percutaneous Approach (ICD-10-PCS; 2020-09-25)
DX: I21.4 Non-ST elevation (NSTEMI) myocardial infarction (principal); I50.43 Acute on chronic combined systolic (congestive) and diastolic (congestive) heart failure; E87.1 Hypo-osmolality and hyponatremia; I31.3 Pericardial effusion (noninflammatory); D72.829 Elevated white blood cell count, unspecified; E78.5 Hyperlipidemia, unspecified; E03.9 Hypothyroidism, unspecified; I25.10 Atherosclerotic heart disease of native coronary artery without angina pectoris; I11.0 Hypertensive heart disease with heart failure; M06.9 Rheumatoid arthritis, unspecified; E78.00 Pure hypercholesterolemia, unspecified; J45.909 Unspecified asthma, uncomplicated; I25.5 Ischemic cardiomyopathy; I07.1 Rheumatic tricuspid insufficiency; Z86.711 Personal history of pulmonary embolism; Z88.0 Allergy status to penicillin; Z88.8 Allergy status to other drugs, medicaments and biological substances; Z90.49 Acquired absence of other specified parts of digestive tract; Z82.49 Family history of ischemic heart disease and other diseases of the circulatory system
CPT/HCPCS: 36415; 71045; 71275; 80048; 80053; 80061; 82550; 82948; 83036; 83880; 84145; 84443; 84484; 85025; 85027; 85347; 85378; 85610; 85651; 85730; 86140; 87040; 93005; 93306; 93356; 93458; 93970; 94660; 99156; 99157; C1769; C1887; C1894; C9600; G0378; J0583; J0696; J1644; J1650; J1940; J2250; J2270; J2405; J3010; J3490; J7030; Q9967

== ENCOUNTER → 2023-10-28 | Outpatient (CLI) | payer MEDICARE ==
[~2023-10-28] MED LIST changes: +AEC81 PO; -AMLO2.5T4 PO; -ASPI-1197 PO; +CEFU500T67 PO; +CLOP-31 PO; -CYCL30DR OP; +CYCL30DR OU; -CYCL5TAB PO; +ETAN50SY SQ; -HYDR200T4 PO; +HYDR200T75 PO; -LATA7.5D OP; +LATA7.5D OU; -LEFL10TA19 PO; -MELO-106 PO; +PHEN100C23 PO; -PHEN100C9 PO
[2023-10-28] MEDS: REGADENOSON 0.4 MG/5 ML PF SYG IVP ONE (11:43)
== END | disposition home or self-care (01) ==
LOC: SHCH 07:51
PROVIDERS: ATTEND Internal Medicine Cardiovascular Disease
DX: I49.1 Atrial premature depolarization (principal); I25.10 Atherosclerotic heart disease of native coronary artery without angina pectoris
CPT/HCPCS: 78452; 96374; 93017; J2785; A9500 ×2

== ENCOUNTER → 2023-12-20 | Outpatient (CLI) | payer MEDICARE ==
[~2023-12-20] MED LIST changes: -ROSU40TA21 PO; +ROSU40TA70 PO
== END | disposition home or self-care (01) ==
LOC: SHCH 11:03
PROVIDERS: ATTEND Internal Medicine Cardiovascular Disease
DX: I08.8 Other rheumatic multiple valve diseases (principal); I27.20 Pulmonary hypertension, unspecified
CPT/HCPCS: 93306

== ENCOUNTER 2024-01-01 13:30 | Emergency (ER) | payer MEDICARE ==
[~2024-01-01] VITALS: Ht 162.6 cm; Wt 77.1 kg
[2024-01-01 13:38] VITALS: BP 166/56; PULSE 52; RESP 18
[2024-01-01] MEDS ORDERED: 0.9% NACL 500ML IV.SOLN 500 ML IV ONE (15:00)
[2024-01-01] MEDS ORDERED: CEFTRIAXONE 2GM VIAL IVPB ONE (15:00)
[2024-01-01 15:28] LABS: BASOPHILS # (AUTO) 0.06 K/uL (0.00-0.20); BASOPHILS % (AUTO) 0.9 % (0.0-5.0); EOSINOPHILS # (AUTO) 0.19 K/uL (0.00-0.70); HEMATOCRIT 35.2 % (36-48); IMMATURE GRANULOCYTE ABSOLUTE 0.02 K/uL (0-1); LYMPHOCYTES # (AUTO) 1.8 K/uL (1.0-4.8); LYMPHOCYTES % (AUTO) 28.8 % (21.0-51.0); MEAN CORPUSCULAR HEMOGLOBIN 34.5 pg (27.0-33.0); MEAN CORPUSCULAR HGB CONC 36.1 g/dL (32.0-36.0); MEAN CORPUSCULAR VOLUME 95.7 fL (79-99); MONOCYTES # (AUTO) 0.9 K/uL (0.1-1.0); MONOCYTES % (AUTO) 13.6 % (3.0-13.0); NEUTROPHILS # (AUTO) 3.4 K/uL (1.8-7.7); NEUTROPHILS % (AUTO) 53.4 % (40.0-77.0); PLATELET COUNT (AUTO) 207 K/uL (130-400); RED BLOOD CELL COUNT(AUTO) 3.68 MIL/uL (4.00-5.50); WHITE BLOOD COUNT (AUTO) 6.4 K/uL (4.8-10.8)
[2024-01-01 15:40] LABS: CREATININE 1.1 mg/dL (0.5-1.0); POTASSIUM 4.5 mmol/L (3.5-5.1)
[2024-01-01 15:49] LABS: ALBUMIN 4.1 g/dL (3.5-5.0); BILIRUBIN,DIRECT 0.2 mg/dL (0.0-0.3); BILIRUBIN,TOTAL 0.5 mg/dL (0.2-1.0); TOTAL PROTEIN, SERUM 7.9 g/dL (6.0-8.3)
[2024-01-01 15:50] LABS: B-TYPE NATRIURETIC PEPTIDE 793 pg/mL (0-100)
[2024-01-01 15:50] LABS: ADD UA MICROSCOPIC YES; APPEARANCE,URINE CLEAR (CLEAR); BILIRUBIN,URINE NEGATIVE (NEGATIVE); COLOR,URINE COLORLESS (YELLOW); GLUCOSE, URINE (UA) NEGATIVE (NEGATIVE); KETONES,URINE NEGATIVE (NEGATIVE); LEUKOCYTE ESTERASE ,URINE NEGATIVE Leu/uL (NEGATIVE); NITRATE,URINE NEGATIVE (NEGATIVE); OCCULT BLOOD,URINE NEGATIVE (NEGATIVE); PH,URINE 6.5 (5.0-8.0); PROTEIN,URINE NEGATIVE (NEGATIVE); UROBILINOGEN,URINE 0.2 mg/dL (0.2-1.0)
[2024-01-01 15:52] LABS: SQUAMOUS EPITHELIAL CELL,UR RARE /HPF (0-2); WBC,URINE 0-1 /HPF (0-1)
[2024-01-01] MEDS: TETANUS/DIPHTHERIA TOXOID [ADULT] 0.5 ML VIAL IM ONE (17:01)
== END 2024-01-01 17:33 | disposition home or self-care (01) ==
LOC: EDH 13:30
DX: S09.90XA Unspecified injury of head, initial encounter (principal); R42 Dizziness and giddiness; M19.90 Unspecified osteoarthritis, unspecified site; E78.00 Pure hypercholesterolemia, unspecified; I10 Essential (primary) hypertension; Z90.710 Acquired absence of both cervix and uterus; W18.39XA Other fall on same level, initial encounter; Y93.89 Activity, other specified; Y92.89 Other specified places as the place of occurrence of the external cause; Y99.8 Other external cause status
CPT/HCPCS: 36415; 70450; 71046; 72125; 73030; 80048; 80076; 81001; 83605; 83880; 84484; 85025; 87040; 90471; 90714; 93005

== ENCOUNTER 2024-01-10 07:53 | Day surgery (SDC) | payer MEDICARE ==
[2024-01-06 15:05] LABS: BASOPHILS # (AUTO) 0.07 K/uL (0.00-0.20); BASOPHILS % (AUTO) 0.7 % (0.0-5.0); EOSINOPHILS # (AUTO) 0.16 K/uL (0.00-0.70); EOSINOPHILS % (AUTO) 1.7 % (0.0-8.0); HEMATOCRIT 36.3 % (36-48); IMMATURE GRANULOCYTE ABSOLUTE 0.03 K/uL (0-1); LYMPHOCYTES # (AUTO) 1.8 K/uL (1.0-4.8); LYMPHOCYTES % (AUTO) 19.1 % (21.0-51.0); MEAN CORPUSCULAR HEMOGLOBIN 34.1 pg (27.0-33.0); MEAN CORPUSCULAR HGB CONC 34.4 g/dL (32.0-36.0); MEAN CORPUSCULAR VOLUME 98.9 fL (79-99); NEUTROPHILS # (AUTO) 6.3 K/uL (1.8-7.7); NEUTROPHILS % (AUTO) 67.2 % (40.0-77.0); PLATELET COUNT (AUTO) 213 K/uL (130-400); RED BLOOD CELL COUNT(AUTO) 3.67 MIL/uL (4.00-5.50); RED CELL DISTRIBUTION WIDTH 14.1 % (11.0-15.5); WHITE BLOOD COUNT (AUTO) 9.4 K/uL (4.8-10.8)
[2024-01-06 15:16] LABS: CREATININE 1.1 mg/dL (0.5-1.0); POTASSIUM 4.9 mmol/L (3.5-5.1)
[2024-01-06 15:19] LABS: INR 0.97 (0.85-1.15); PROTHROMBIN TIME 11.5 SEC (9.6-11.6)
[2024-01-06 15:20] LABS: PARTIAL THROMBOPLASTIN TIME 25.8 SEC (26.3-35.5)
[2024-01-06 15:24] LABS: APPEARANCE,URINE CLEAR (CLEAR); BILIRUBIN,URINE NEGATIVE (NEGATIVE); COLOR,URINE LIGHT-YELLOW (YELLOW); GLUCOSE, URINE (UA) NEGATIVE (NEGATIVE); KETONES,URINE NEGATIVE (NEGATIVE); LEUKOCYTE ESTERASE ,URINE NEGATIVE Leu/uL (NEGATIVE); NITRATE,URINE NEGATIVE (NEGATIVE); OCCULT BLOOD,URINE NEGATIVE (NEGATIVE); PROTEIN,URINE NEGATIVE (NEGATIVE); UROBILINOGEN,URINE 0.2 mg/dL (0.2-1.0)
[2024-01-06 15:34] LABS: B-TYPE NATRIURETIC PEPTIDE 1240 pg/mL (0-100)
[2024-01-06 15:37] LABS: ADD UA MICROSCOPIC NO
[2024-01-06 15:52] VITALS: BP 154/71; PULSE 97; RESP 18
[~2024-01-10] VITALS: Ht 162.6 cm; Wt 78.9 kg
[2024-01-10] VITALS (27 sets, daily range): BP systolic 67–163; BP diastolic 22–79; PULSE 31–69; RESP 10–22
[~2024-01-10 07:53] MED LIST changes: -BRIM10DR16 OP; -CEFU500T67 PO; -CLOP-31 PO; -CYCL30DR OU; -ETAN50SY SQ; +FURO40TA5 PO; -HYDR200T75 PO; -LATA7.5D OU; +SPIR100T5 PO; -SPIR25TA6 PO; +TAFL1DRO6 OP; +UPAD15TA PO
[2024-01-10] MEDS: 0.9%NACL 1000ML 1,000 ML IV ONE (08:43)
[2024-01-10] MEDS ORDERED: IOHEXOL-350 75 ML VIAL IV ONE (10:04)
[2024-01-10] MEDS ORDERED: HEPARIN 10,000 UNIT/10ML (1,000 UNIT/ML) VIAL ONE (10:04)
[2024-01-10] MEDS ORDERED: MIDAZOLAM HCL 1 MG/ML 2ML VIAL ONE (10:04)
[2024-01-10] MEDS ORDERED: IOHEXOL-350 50ML VIAL IV ONE (10:04)
[2024-01-10] MEDS ORDERED: LIDOCAINE HCL 400MG/20ML VIAL ONE (10:04)
[2024-01-10] MEDS: ATROPINE 1MG SYG IVP ONE (11:45)
[2024-01-10] MEDS ORDERED: ATROPINE 1MG SYG IVP ONE (14:30)
[2024-01-10] MEDS ORDERED: 0.9% NACL 500ML IV.SOLN 500 ML IV SCH (14:30)
== END 2024-01-10 17:00 | disposition home or self-care (01) ==
LOC: DAH 07:53
PROVIDERS: ATTEND Internal Medicine Cardiovascular Disease
DX: I25.118 Atherosclerotic heart disease of native coronary artery with other forms of angina pectoris (principal); I34.0 Nonrheumatic mitral (valve) insufficiency; I27.20 Pulmonary hypertension, unspecified; I25.5 Ischemic cardiomyopathy; I44.0 Atrioventricular block, first degree; E78.5 Hyperlipidemia, unspecified; E03.9 Hypothyroidism, unspecified; I10 Essential (primary) hypertension; Z82.49 Family history of ischemic heart disease and other diseases of the circulatory system; Z79.82 Long term (current) use of aspirin; Z79.890 Hormone replacement therapy; Z79.899 Other long term (current) drug therapy; Z95.5 Presence of coronary angioplasty implant and graft; Z79.01 Long term (current) use of anticoagulants
CPT/HCPCS: 80048; 83880; 85025; 85610; 85730; 81003; 36415; 71045; 93005; 93460; 82948; C1894 ×2; C1760; C1769; J3490; J7030; J0461; J2250; J1644; Q9967 ×2; A4215; A4222; A4221; A4663; A4216; A4606; A4223 ×3; 99156; 99157